=== PATIENT | female | born 1995 | race Caucasian/White ===

== ENCOUNTER 2017-08-01 02:06 | Emergency (ER) | payer OTHER ==
[~2017-08-01] VITALS: Ht 165.1 cm; Wt 72.6 kg
[~2017-08-01 02:06] MED LIST: MUCINEX; PROVENTIL0.09 MG/AC IH; TRIAMINIC; ZITHROMAX Z PA250 MG PO
[2017-08-01 03:32] LABS: BILIRUBIN NEGATIVE (NEGATIVE); BLOOD NEGATIVE (NEGATIVE); CLARITY CLEAR (CLEAR); COLOR YELLOW (YELLOW); GLUCOSE NEGATIVE (NEGATIVE); KETONE NEGATIVE (NEGATIVE); LEUKO ESTERASE TRACE (NEGATIVE); NITRITE NEGATIVE (NEGATIVE); PH 5.5 (5.0-9.0); SPECIFIC GRAVITY <= 1.005 (1.005-1.030); UROBILINOGEN 0.2 E.U./dl (0.2-1.0)
[2017-08-01 03:38] LABS: BACTERIA TRACE
[2017-08-01] MEDS ORDERED: ANAPROX DS550 MG PO (04:33)
[2017-08-01] MEDS ORDERED: Orphenadrine C100 MG PO (04:33)
== END 2017-08-01 04:58 | disposition home or self-care (01) ==
LOC: ED 02:06
PROVIDERS: Emergency Medicine Emergency Medical Services
DX: S16.1XXA Strain of muscle, fascia and tendon at neck level, initial encounter (principal); S39.012A Strain of muscle, fascia and tendon of lower back, initial encounter; Z79.899 Other long term (current) drug therapy; V49.9XXA Car occupant (driver) (passenger) injured in unspecified traffic accident, initial encounter; Y93.89 Activity, other specified; Y92.89 Other specified places as the place of occurrence of the external cause; Y99.8 Other external cause status

== ENCOUNTER 2018-09-03 17:42 | Emergency (ER) | payer OTHER ==
[~2018-09-03] VITALS: Ht 154.9 cm; Wt 81.6 kg
[~2018-09-03 17:42] MED LIST changes: +ANAPROX DS550 MG PO; +Orphenadrine C100 MG PO
[2018-09-03] MEDS ORDERED: IBUPROFEN600 MG PO (18:46)
== END 2018-09-03 18:57 | disposition home or self-care (01) ==
LOC: ED 17:42
DX: S43.52XA Sprain of left acromioclavicular joint, initial encounter (principal); X58.XXXA Exposure to other specified factors, initial encounter; Y93.89 Activity, other specified; Y92.89 Other specified places as the place of occurrence of the external cause; Y99.8 Other external cause status

== ENCOUNTER → 2020-01-19 | Outpatient (CLI) | payer OTHER ==
[~2020-01-19] MED LIST changes: +IBUPROFEN600 MG PO
== END | disposition home or self-care (01) ==
LOC: COVID19 08:30
DX: Z03.818 Encounter for observation for suspected exposure to other biological agents ruled out (principal)